=== PATIENT | male | born 1955 | race Caucasian/White ===

== ENCOUNTER 2020-08-17 08:22 | Inpatient (IN) ==
[2020-08-17] MEDS ORDERED: 0.9 % Sodium Chloride 1,000 ML ONE ×2 (09:03→09:55)
[2020-08-17] MEDS: 0.9 % Sodium Chloride 1,000 ML IVC SCH (09:11)
[2020-08-17] MEDS ORDERED: Heparin 1,000 UNITS/500 mL 500 ML ONE (09:56)
[2020-08-17] MEDS ORDERED: Nitroglycerin 1,000 MCG/10 ML VIAL IV ONE (09:56)
[2020-08-17] MEDS ORDERED: *HR* Heparin 10,000 UNIT/10 ML VIAL ONE (09:56)
[2020-08-17] MEDS ORDERED: ISOVUE-370 200 ML INFUS..BTL ONE (09:56)
[2020-08-17] MEDS ORDERED: *HR* FentaNYL (PF) 100 MCG/2 ML VIAL ONE (10:02)
[2020-08-17] MEDS ORDERED: *HR* Midazolam HCl 2 MG/2 ML VIAL ONE (10:02)
[2020-08-17] MEDS ORDERED: Nitroglycerin 0.4 MG TAB.SUBL SL PRN (11:03)
[2020-08-17] MEDS ORDERED: Perflutren Lipid Microsphere 1.3 ML in 0.9 % Sodium Chloride 8.7 ML IVP PRN (12:37)
[2020-08-17 14:07] LABS: Basophils % 0.5 %; Eosinophils # 0.3 K/mcL (0.0-0.6); Hematocrit 43.3 % (37.5-50.1); Hemoglobin 14.4 g/dL (12.9-16.9); Immature Granulocytes % 0.2 % (0-4); Lymphocytes # 1.6 K/mcL (0.6-4.6); Lymphocytes % 25.5 %; Mean Corpuscular HGB Conc 33.3 g/dL (31.6-35.5); Mean Corpuscular Hemoglobin 30.6 pg (28.0-33.3); Mean Corpuscular Volume 91.9 fL (83.0-100.0); Mean Platelet Volume 10.4 fL (9.4-12.4); Monocytes # 0.4 K/mcL (0.0-1.3); Monocytes % 6.1 %; Neutrophils # 3.9 K/mcL (1.6-8.9); Platelet Count 163 K/mcL (140-400); Red Blood Count 4.71 M/mcL (4.19-5.50); Red Cell Distribution Width 12.3 % (11.5-14.5); Segmented Neutrophils % 62.7 %; White Blood Count 6.2 K/mcL (4.3-11.1)
[2020-08-17 14:17] LABS: Estimated Average Glucose 111 mg/dl; Hemoglobin A1C 5.5 %
[2020-08-17 14:24] LABS: BUN/Creatinine Ratio 11 (6-26); Blood Urea Nitrogen 11 mg/dL (8-23); Calcium 8.8 mg/dL (8.6-10.3); Carbon Dioxide 23 mEq/L (23-29); Chloride 108 mEq/L (98-107); Cholesterol 97 mg/dL (< 200); Glucose 140 mg/dL (70-105); HDL Cholesterol 32 mg/dL (40-59); LDL Cholesterol,Calculated 43 mg/dL (< 100); Osmolality,Calculated 286 (280-300); Potassium 3.9 mEq/L (3.5-5.1); Sodium 137 mEq/L (136-145); Triglycerides 111 mg/dL (< 150); eGFR For African Americans > 60 (> 60); eGFR For Non-African Americans > 60 (> 60)
[2020-08-17 14:33] LABS: Activated Partial Thrombo Time 31.9 Seconds (26.0-36.0)
[2020-08-17 14:36] LABS: INR 1.3; Prothrombin Time 14.4 Seconds (9.4-12.1)
[2020-08-17] MEDS: Chlorhexidine Rinse 15 ML MOUTHWASH MM SCH (19:57)
[2020-08-17 20:52] LABS: Influenza A PCR Negative (Negative); Influenza B PCR Negative (Negative); Resp. Syncytial Virus PCR Negative (Negative)
[2020-08-17 20:53] LABS: SARS-CoV-2 by PCR (In House) Negative (Negative)
[2020-08-18] MEDS: 0.9 % Sodium Chloride 1,000 ML IVC SCH ×3 (05:37→23:05)
[2020-08-18] MEDS ORDERED: Papaverine 60 MG/2 ML VIAL IVP ONE (06:39)
[2020-08-18] MEDS ORDERED: *HR* FentaNYL (PF) 1,000 MCG/20 ML VIAL ONE (06:43)
[2020-08-18] MEDS ORDERED: *HR* Midazolam HCl 5 MG/5 ML VIAL IVP ONE (06:43)
[2020-08-18] MEDS ORDERED: *HR* Propofol 200 MG/20 ML VIAL IVP ONE (06:43)
[2020-08-18] MEDS ORDERED: Metoprolol XL (24 HR) Succ 50 MG TAB.ER.24H PO SCH (06:45)
[2020-08-18] MEDS ORDERED: Tranexamic Acid 1,000 MG/10 ML VIAL ONE (06:46)
[2020-08-18] MEDS ORDERED: *HR* Rocuronium Bromide 50 MG/5 ML VIAL ONE ×2 (06:48→09:31)
[2020-08-18] MEDS ORDERED: *HR* Magnesium Sulfate 1 GM/2 ML VIAL ONE (06:49)
[2020-08-18] MEDS ORDERED: Lidocaine 2% Syringe 100 MG/5 ML ONE (06:49)
[2020-08-18] MEDS: Chlorhexidine Rinse 15 ML MOUTHWASH MM SCH ×2 (06:50→20:02)
[2020-08-18] MEDS ORDERED: CeFAZolin Syr 2,000MG/20 ML 2,000 MG/20 ML SYRINGE IVPB ONE (07:00)
[2020-08-18] MEDS ORDERED: NiCARdipine 2.5 MG/10 ML Syringe IVPB ONE (07:31)
[2020-08-18] MEDS ORDERED: Dextrose 50 % in Water (Vial) 30 ML, Sodium Bicarbonate 20 MEQ, Potassium Chloride 15 M... TH ONE (07:45)
[2020-08-18] MEDS ORDERED: Dextrose 50 % in Water (Vial) 30 ML, Sodium Bicarbonate 20 MEQ, Lidocaine 1% 5 ML, Insu... TH ONE ×3 (07:45)
[2020-08-18] MEDS ORDERED: Heparin 15,000 UNIT in 0.9 % Sodium Chloride 500 ML IV ONE (07:45)
[2020-08-18] MEDS ORDERED: Norepinephrine 4 MG in 0.9 % Sodium Chloride 250 ML IVC PRN (07:45)
[2020-08-18] MEDS ORDERED: Insulin Human Regular 100 UNIT in 0.9 % Sodium Chloride 100 ML IV PRN (07:45)
[2020-08-18 08:59] LABS: ABG Base Excess -1 mEq/L (-2 to 3); ABG Chloride 102 mEq/L (98-107); ABG Glucose 90 mg/dL (60-95); ABG HCO3 26 mEq/L (21-27); ABG Ionized Calcium 1.21 mmol/L (1.15-1.35); ABG Oxygen Saturation 100 % (95-98); ABG PCO2 52 mmHg (35-45); ABG PO2 396 mmHg (85-104); ABG TCO2 28 mEq/L (20-26)
[2020-08-18 09:54] LABS: ABG Base Excess -3 mEq/L (-2 to 3); ABG Chloride 106 mEq/L (98-107); ABG Glucose 104 mg/dL (60-95); ABG HCO3 25 mEq/L (21-27); ABG Ionized Calcium 1.09 mmol/L (1.15-1.35); ABG Oxygen Saturation 100 % (95-98); ABG PCO2 54 mmHg (35-45); ABG PH 7.26 pH Units (7.32-7.45); ABG PO2 297 mmHg (85-104); ABG TCO2 26 mEq/L (20-26)
[2020-08-18 10:22] LABS: VBG Base Excess -3 mEq/L; VBG Chloride 100 mEq/L (98-107); VBG Glucose 219 mg/dl (65-95); VBG HCO3 24 mEq/L (21-27); VBG Ionized Calcium 0.95 mmol/L (1.15-1.35); VBG Oxygen Saturation 89 %; VBG PCO2 46 mmHg (41-51); VBG PH 7.32 pH Units (7.32-7.42); VBG PO2 62 mmHg (25-50); VBG Total CO2 25 mEq/L
[2020-08-18 10:44] LABS: ABG Base Excess 1 mEq/L (-2 to 3); ABG Chloride 100 mEq/L (98-107); ABG Glucose 170 mg/dL (60-95); ABG HCO3 25 mEq/L (21-27); ABG Oxygen Saturation 100 % (95-98); ABG PCO2 38 mmHg (35-45); ABG PH 7.43 pH Units (7.32-7.45); ABG PO2 475 mmHg (85-104); ABG TCO2 26 mEq/L (20-26)
[2020-08-18] MEDS ORDERED: Calcium Gluconate 1,000 MG/10 ML VIAL ONE (10:58)
[2020-08-18] MEDS ORDERED: Protamine Sulfate 250 MG/25 ML VIAL IVP ONE (10:58)
[2020-08-18 11:09] LABS: ABG Base Excess 0 mEq/L (-2 to 3); ABG Chloride 101 mEq/L (98-107); ABG Glucose 134 mg/dL (60-95); ABG HCO3 24 mEq/L (21-27); ABG Ionized Calcium 0.97 mmol/L (1.15-1.35); ABG Oxygen Saturation 100 % (95-98); ABG PCO2 33 mmHg (35-45); ABG PH 7.46 pH Units (7.32-7.45); ABG PO2 366 mmHg (85-104); ABG TCO2 25 mEq/L (20-26)
[2020-08-18] MEDS ORDERED: Albumin Human 5% 12.5 GM/250 ML IV.SOLN ONE (11:24)
[2020-08-18] MEDS ORDERED: Famotidine 20 MG/2 ML VIAL ONE (11:35)
[2020-08-18] MEDS ORDERED: Protamine Sulfate 50 MG/5 ML VIAL IVP ONE (11:35)
[2020-08-18 11:41] LABS: ABG Base Excess -1 mEq/L (-2 to 3); ABG Chloride 104 mEq/L (98-107); ABG Glucose 85 mg/dL (60-95); ABG HCO3 24 mEq/L (21-27); ABG Ionized Calcium 1.19 mmol/L (1.15-1.35); ABG Oxygen Saturation 100 % (95-98); ABG PCO2 40 mmHg (35-45); ABG PH 7.38 pH Units (7.32-7.45); ABG PO2 359 mmHg (85-104); ABG TCO2 25 mEq/L (20-26)
[2020-08-18] MEDS ORDERED: *HR* Dextrose 50 % in Water (Vial) 50 ML VIAL IVP PRN (12:15)
[2020-08-18] MEDS ORDERED: Naloxone 0.4 MG/ML INJ IVP PRN (12:15)
[2020-08-18] MEDS ORDERED: Norepinephrine 4 MG/254 ML IV.SOLN IVC SCH (12:15)
[2020-08-18] MEDS ORDERED: Acetaminophen 325 MG TABLET PO PRN (12:15)
[2020-08-18] MEDS ORDERED: Ondansetron 4 MG/2 ML VIAL IVP PRN (12:15)
[2020-08-18] MEDS ORDERED: *HR* Promethazine 25 MG/ML VIAL IM PRN (12:15)
[2020-08-18] MEDS ORDERED: Insulin Regular, Human 100 UNIT/ML IV PRN (12:15)
[2020-08-18] MEDS ORDERED: Potassium Chloride 40 MEQ/200 ML BAG IVPB PRN (12:15)
[2020-08-18] MEDS ORDERED: Insulin Human Regular 100 UNIT in 0.9 % Sodium Chloride 100 ML IVC SCH (12:15)
[2020-08-18] MEDS ORDERED: *HR* Dextrose 50 % in Water (Vial) 50 ML VIAL ONE (12:34)
[2020-08-18 12:51] LABS: ABG Base Excess 0 mEq/L (-2 to 3); ABG HCO3 26 mEq/L (21-27); ABG Oxygen Saturation 100 % (95-98); ABG PCO2 49 mmHg (35-45); ABG PH 7.33 pH Units (7.32-7.45); ABG PO2 193 mmHg (85-104); ABG TCO2 28 mEq/L (20-26); Blood Gas Modality AF; Blood Gas VT 600 cc
[2020-08-18 13:02] LABS: Basophils % 0.3 %; Eosinophils % 1.2 %; Mean Corpuscular HGB Conc 34.6 g/dL (31.6-35.5)
[2020-08-18 13:04] LABS: Basophils # 0.1 K/mcL (0.0-0.2); Eosinophils # 0.2 K/mcL (0.0-0.6); Hematocrit 34.7 % (37.5-50.1); Immature Granulocytes % 0.8 % (0-4); Immature Platelets 7.1 % (1.1-6.1); Lymphocytes # 1.7 K/mcL (0.6-4.6); Lymphocytes % 8.4 %; Mean Corpuscular Hemoglobin 31.3 pg (28.0-33.3); Mean Corpuscular Volume 90.4 fL (83.0-100.0); Mean Platelet Volume 10.5 fL (9.4-12.4); Monocytes # 1.2 K/mcL (0.0-1.3); Monocytes % 6.1 %; Neutrophils # 16.4 K/mcL (1.6-8.9); Platelet Count 127 K/mcL (140-400); Red Blood Count 3.84 M/mcL (4.19-5.50); Red Cell Distribution Width 12.1 % (11.5-14.5); Segmented Neutrophils % 83.2 %; White Blood Count 19.7 K/mcL (4.3-11.1)
[2020-08-18] MEDS: Albumin Human 5% 12.5 GM/250 ML IV.SOLN IVPB PRN ×2 (13:04→13:48)
[2020-08-18 13:07] LABS: Platelet Estimate Slight Decrease (Normal)
[2020-08-18 13:16] LABS: INR 1.7; Prothrombin Time 19.2 Seconds (9.4-12.1)
[2020-08-18 13:17] LABS: BUN/Creatinine Ratio 12 (6-26); Blood Urea Nitrogen 11 mg/dL (8-23); Calcium 7.7 mg/dL (8.6-10.3); Carbon Dioxide 26 mEq/L (23-29); Chloride 108 mEq/L (98-107); Glucose 181 mg/dL (70-105); Magnesium 3.2 mg/dL (1.6-2.6); Osmolality,Calculated 290 (280-300); Potassium 3.8 mEq/L (3.5-5.1); Sodium 138 mEq/L (136-145); eGFR For African Americans > 60 (> 60); eGFR For Non-African Americans > 60 (> 60)
[2020-08-18 13:18] LABS: Activated Partial Thrombo Time 30.4 Seconds (26.0-36.0)
[2020-08-18] MEDS: Aspirin Enteric Coated 81 MG Tablet PO SCH (13:27)
[2020-08-18] MEDS: niCARdipine 20 MG/200 ML MLS IVC SCH ×4 (13:33→23:05)
[2020-08-18] MEDS: *HR* OxyCODONE/APAP 5/325 TABLET PO PRN ×2 (13:52→20:02)
[2020-08-18] MEDS: *HR* FentaNYL (PF) 100 MCG/2 ML VIAL IVP PRN ×4 (13:52→23:05)
[2020-08-18] MEDS ORDERED: 0.9 % Sodium Chloride 500 ML ONE (13:58)
[2020-08-18 16:18] LABS: Bilirubin,Urine Negative (Negative); Blood,Urine Trace (Negative); Clarity,Urine Clear (Clear); Color,Urine Light-Yellow (Yellow); Glucose,Urine (UA) Normal (Normal); Ketones,Urine Negative (Negative); Leukocyte Esterase,Urine Negative (Negative); Mucus,Urine Few per lpf (None-Few); Nitrite,Urine Negative (Negative); Protein,Urine Negative (Neg-Trace); RBC,Urine 0-3 per hpf (0-3); Specific Gravity,Urine 1.022 (1.010-1.025); Squamous Epithelial Cell,Urine Few per hpf (None-Few); WBC,Urine 0-3 per hpf (0-3)
[2020-08-18] MEDS ORDERED: Lidocaine 2% Syringe 100 MG/5 ML IVP ONE (16:33)
[2020-08-18] MEDS ORDERED: Tranexamic Acid 1,000 MG/10 ML VIAL IR ONE (16:33)
[2020-08-18] MEDS ORDERED: Heparin 1,000 UNITS/500 mL IV.SOLN IR ONE (16:33)
[2020-08-18] MEDS ORDERED: *HR* Heparin 10,000 UNIT/10 ML VIAL IR ONE (16:33)
[2020-08-18] MEDS ORDERED: Mannitol 25% vial 12.5 GM/50 ML VIAL IVPB ONE (16:33)
[2020-08-18] MEDS ORDERED: Albumin Human 25% 25 GM/100 ML IV.SOLN IVPB ONE (16:33)
[2020-08-18] MEDS ORDERED: *HR* Phenylephrine 10 MG/ML VIAL IVC ONE (16:33)
[2020-08-18] MEDS ORDERED: D5% in Water 250 ML IV BAG IV ONE (16:33)
[2020-08-18] MEDS ORDERED: *HR* Magnesium Sulfate 2 GM/50 ML PIGGYBACK IVPB ONE (16:33)
[2020-08-18] MEDS: CeFAZolin 2 GM/120 ML BAG IVPB SCH ×2 (16:36→23:04)
[2020-08-18 16:56] LABS: ABG Base Excess 1 mEq/L (-2 to 3); ABG HCO3 27 mEq/L (21-27); ABG Oxygen Saturation 98 % (95-98); ABG PCO2 47 mmHg (35-45); ABG PH 7.36 pH Units (7.32-7.45); ABG PO2 108 mmHg (85-104); ABG TCO2 28 mEq/L (20-26); Blood Gas VT 700 cc
[2020-08-18 18:15] LABS: ABG Base Excess 1 mEq/L (-2 to 3); ABG HCO3 27 mEq/L (21-27); ABG Oxygen Saturation 96 % (95-98); ABG PCO2 48 mmHg (35-45); ABG PH 7.36 pH Units (7.32-7.45); ABG PO2 83 mmHg (85-104); ABG TCO2 29 mEq/L (20-26); Blood Gas Pressure Support 10 cm H2O
[2020-08-18 19:52] LABS: ABG Base Excess 1 mEq/L (-2 to 3); ABG HCO3 27 mEq/L (21-27); ABG Oxygen Saturation 93 % (95-98); ABG PCO2 50 mmHg (35-45); ABG PH 7.34 pH Units (7.32-7.45); ABG PO2 71 mmHg (85-104); ABG TCO2 28 mEq/L (20-26)
[2020-08-19] MEDS: niCARdipine 20 MG/200 ML MLS IVC SCH ×2 (00:34→06:27)
[2020-08-19] MEDS: 0.9 % Sodium Chloride 1,000 ML IVC SCH (02:13)
[2020-08-19] MEDS: *HR* OxyCODONE/APAP 5/325 TABLET PO PRN ×3 (04:09→18:01)
[2020-08-19 04:27] LABS: Basophils % 0.1 %; Hematocrit 25.4 % (37.5-50.1); Immature Granulocytes % 0.2 % (0-4); Lymphocytes # 0.5 K/mcL (0.6-4.6); Lymphocytes % 4.9 %; Mean Corpuscular HGB Conc 33.5 g/dL (31.6-35.5); Mean Corpuscular Volume 92.7 fL (83.0-100.0); Mean Platelet Volume 10.6 fL (9.4-12.4); Monocytes # 0.9 K/mcL (0.0-1.3); Monocytes % 8.4 %; Platelet Count 117 K/mcL (140-400); Red Blood Count 2.74 M/mcL (4.19-5.50); Red Cell Distribution Width 12.6 % (11.5-14.5); Segmented Neutrophils % 86.4 %; White Blood Count 10.4 K/mcL (4.3-11.1)
[2020-08-19 04:39] LABS: Hemoglobin 8.5 g/dL (12.9-16.9)
[2020-08-19 04:43] LABS: BUN/Creatinine Ratio 16 (6-26); Blood Urea Nitrogen 17 mg/dL (8-23); Calcium 7.9 mg/dL (8.6-10.3); Carbon Dioxide 26 mEq/L (23-29); Chloride 109 mEq/L (98-107); Glucose 101 mg/dL (70-105); Osmolality,Calculated 292 (280-300); Potassium 4.7 mEq/L (3.5-5.1); Sodium 140 mEq/L (136-145); eGFR For African Americans > 60 (> 60); eGFR For Non-African Americans > 60 (> 60)
[2020-08-19] MEDS: Aspirin Enteric Coated 81 MG Tablet PO SCH ×2 (07:00→09:02)
[2020-08-19] MEDS: Chlorhexidine Rinse 15 ML MOUTHWASH MM SCH ×3 (07:00→09:20)
[2020-08-19] MEDS ORDERED: *HR* Dextrose 50 % in Water (Vial) 50 ML VIAL IVP PRN (08:56)
[2020-08-19] MEDS ORDERED: Dextrose Gel 15 GM/37.5 ML TUBE PO PRN ×2 (08:56)
[2020-08-19] MEDS ORDERED: Naloxone 0.4 MG/ML INJ IVP PRN (08:56)
[2020-08-19] MEDS ORDERED: *HR* Promethazine 25 MG/ML VIAL IM PRN (08:56)
[2020-08-19] MEDS ORDERED: D5% in Water 1,000 ML IVC PRN (08:56)
[2020-08-19] MEDS ORDERED: Acetaminophen 325 MG TABLET PO PRN (08:56)
[2020-08-19] MEDS ORDERED: Ondansetron 4 MG/2 ML VIAL IVP PRN (08:56)
[2020-08-19] MEDS ORDERED: Nitroglycerin 0.4 MG TAB.SUBL SL PRN (08:56)
[2020-08-19] MEDS ORDERED: Pantoprazole 40 MG VIAL IVP SCH ×2 (09:00)
[2020-08-19] MEDS: Insulin LISPRO 300 UNITS/3 ML VIAL SUBQ SCH ×3 (10:50→20:13)
[2020-08-19] MEDS: Nicotine 2 MG GUM BC PRN (15:06)
[2020-08-19] MEDS: *HR* Heparin 5,000 UNIT/ML VIAL SQ SCH (16:37)
[2020-08-20 05:18] LABS: Basophils % 0.1 %; Eosinophils % 0.1 %; Hematocrit 25.6 % (37.5-50.1); Hemoglobin 8.6 g/dL (12.9-16.9); Immature Granulocytes % 0.4 % (0-4); Lymphocytes # 1.5 K/mcL (0.6-4.6); Lymphocytes % 12.8 %; Mean Corpuscular HGB Conc 33.6 g/dL (31.6-35.5); Mean Corpuscular Hemoglobin 31.6 pg (28.0-33.3); Mean Corpuscular Volume 94.1 fL (83.0-100.0); Monocytes # 1.1 K/mcL (0.0-1.3); Monocytes % 9.5 %; Neutrophils # 8.7 K/mcL (1.6-8.9); Platelet Count 113 K/mcL (140-400); Red Blood Count 2.72 M/mcL (4.19-5.50); Red Cell Distribution Width 12.7 % (11.5-14.5); Segmented Neutrophils % 77.1 %; White Blood Count 11.3 K/mcL (4.3-11.1)
[2020-08-20 05:28] LABS: BUN/Creatinine Ratio 22 (6-26); Blood Urea Nitrogen 25 mg/dL (8-23); Calcium 8.4 mg/dL (8.6-10.3); Carbon Dioxide 26 mEq/L (23-29); Chloride 103 mEq/L (98-107); Glucose 122 mg/dL (70-105); Osmolality,Calculated 284 (280-300); Potassium 4.3 mEq/L (3.5-5.1); Sodium 134 mEq/L (136-145); eGFR For African Americans > 60 (> 60); eGFR For Non-African Americans > 60 (> 60)
[2020-08-20] MEDS: *HR* Heparin 5,000 UNIT/ML VIAL SQ SCH ×2 (06:40→17:52)
[2020-08-20] MEDS: *HR* OxyCODONE/APAP 5/325 TABLET PO PRN ×2 (06:46→17:54)
[2020-08-20] MEDS: Aspirin Enteric Coated 81 MG Tablet PO SCH (08:04)
[2020-08-20] MEDS: Insulin LISPRO 300 UNITS/3 ML VIAL SUBQ SCH ×4 (08:04→19:52)
[2020-08-20] MEDS: Chlorhexidine Rinse 15 ML MOUTHWASH MM SCH ×2 (08:04→19:51)
[2020-08-20] MEDS: Nicotine 2 MG GUM BC PRN (16:13)
[2020-08-21 01:07] LABS: Basophils % 0.1 %; Eosinophils % 0.2 %; Hematocrit 23.9 % (37.5-50.1)
[2020-08-21 01:09] LABS: Immature Granulocytes % 0.5 % (0-4); Lymphocytes # 1.3 K/mcL (0.6-4.6); Lymphocytes % 14.9 %; Mean Corpuscular HGB Conc 33.5 g/dL (31.6-35.5); Mean Corpuscular Hemoglobin 31.3 pg (28.0-33.3); Mean Corpuscular Volume 93.4 fL (83.0-100.0); Mean Platelet Volume 11.1 fL (9.4-12.4); Monocytes # 0.8 K/mcL (0.0-1.3); Monocytes % 9.7 %; Neutrophils # 6.3 K/mcL (1.6-8.9); Red Blood Count 2.56 M/mcL (4.19-5.50); Red Cell Distribution Width 12.4 % (11.5-14.5); Segmented Neutrophils % 74.6 %; White Blood Count 8.5 K/mcL (4.3-11.1)
[2020-08-21 01:28] LABS: BUN/Creatinine Ratio 21 (6-26); Blood Urea Nitrogen 23 mg/dL (8-23); Calcium 8.2 mg/dL (8.6-10.3); Carbon Dioxide 25 mEq/L (23-29); Chloride 103 mEq/L (98-107); Glucose 108 mg/dL (70-105); Osmolality,Calculated 282 (280-300); Platelet Count 93 K/mcL (140-400); Platelet Estimate Slight Decrease (Normal); Potassium 4.6 mEq/L (3.5-5.1); Sodium 134 mEq/L (136-145); eGFR For African Americans > 60 (> 60); eGFR For Non-African Americans > 60 (> 60)
[2020-08-21] MEDS: *HR* OxyCODONE/APAP 5/325 TABLET PO PRN ×3 (06:25→23:36)
[2020-08-21] MEDS: *HR* Heparin 5,000 UNIT/ML VIAL SQ SCH ×2 (06:26→18:15)
[2020-08-21] MEDS: Chlorhexidine Rinse 15 ML MOUTHWASH MM SCH ×2 (07:20→21:10)
[2020-08-21] MEDS: Aspirin Enteric Coated 81 MG Tablet PO SCH (07:20)
[2020-08-21] MEDS: Insulin LISPRO 300 UNITS/3 ML VIAL SUBQ SCH ×4 (07:20→20:57)
[2020-08-21] MEDS: Nicotine 2 MG GUM BC PRN (16:22)
[2020-08-22] MEDS: *HR* Heparin 5,000 UNIT/ML VIAL SQ SCH ×2 (06:19→17:24)
[2020-08-22] MEDS: Chlorhexidine Rinse 15 ML MOUTHWASH MM SCH ×2 (07:29→19:46)
[2020-08-22] MEDS: *HR* OxyCODONE/APAP 5/325 TABLET PO PRN ×2 (07:29→19:46)
[2020-08-22] MEDS: Aspirin Enteric Coated 81 MG Tablet PO SCH (07:29)
[2020-08-22] MEDS: Insulin LISPRO 300 UNITS/3 ML VIAL SUBQ SCH ×4 (07:30→22:33)
[2020-08-23 01:22] LABS: Hemoglobin 7.2 g/dL (12.9-16.9); Immature Granulocytes % 0.4 % (0-4); Mean Corpuscular HGB Conc 32.7 g/dL (31.6-35.5)
[2020-08-23 01:24] LABS: Basophils % 0.4 %; Eosinophils # 0.3 K/mcL (0.0-0.6); Eosinophils % 5.3 %; Immature Platelets 6.3 % (1.1-6.1); Lymphocytes # 1.3 K/mcL (0.6-4.6); Lymphocytes % 22.9 %; Mean Corpuscular Hemoglobin 30.6 pg (28.0-33.3); Mean Corpuscular Volume 93.6 fL (83.0-100.0); Mean Platelet Volume 10.6 fL (9.4-12.4); Monocytes # 0.6 K/mcL (0.0-1.3); Monocytes % 10.2 %; Nucleated Red Blood Cells 0.5 /100 WBC (0); Platelet Count 132 K/mcL (140-400); Red Blood Count 2.35 M/mcL (4.19-5.50); Red Cell Distribution Width 12.6 % (11.5-14.5); Segmented Neutrophils % 60.8 %; White Blood Count 5.5 K/mcL (4.3-11.1)
[2020-08-23 01:25] LABS: Neutrophils # 3.3 K/mcL (1.6-8.9)
[2020-08-23 01:39] LABS: BUN/Creatinine Ratio 14 (6-26); Blood Urea Nitrogen 18 mg/dL (8-23); Calcium 8.1 mg/dL (8.6-10.3); Carbon Dioxide 25 mEq/L (23-29); Chloride 105 mEq/L (98-107); Glucose 101 mg/dL (70-105); Magnesium 1.8 mg/dL (1.6-2.6); Osmolality,Calculated 286 (280-300); Potassium 3.9 mEq/L (3.5-5.1); Sodium 137 mEq/L (136-145); eGFR For African Americans > 60 (> 60); eGFR For Non-African Americans 57 (> 60)
[2020-08-23] MEDS: *HR* Heparin 5,000 UNIT/ML VIAL SQ SCH (06:26)
[2020-08-23] MEDS: Insulin LISPRO 300 UNITS/3 ML VIAL SUBQ SCH (07:53)
[2020-08-23] MEDS: Aspirin Enteric Coated 81 MG Tablet PO SCH (08:02)
[2020-08-23] MEDS: Chlorhexidine Rinse 15 ML MOUTHWASH MM SCH (08:02)
[2020-08-23] MEDS: *HR* OxyCODONE/APAP 5/325 TABLET PO PRN (08:04)
[2020-08-23 10:47] VITALS: BP 95/59
== END 2020-08-23 12:07 | disposition home or self-care (01) | DRG 234 ==
LOC: INVDIALAB 08:22 → 2ANU 13:06 → ICNU 08-18 11:15 → 2NNU 08-19 14:04
PROVIDERS: ADMIT Thoracic Surgery (Cardiothoracic Vascular Surgery); ATTEND Thoracic Surgery (Cardiothoracic Vascular Surgery)